=== PATIENT | male | born 1995 | race Caucasian/White ===

== ENCOUNTER 2024-12-07 15:08 | Emergency (ER) | payer OTHER, SELFPAY ==
[2024-12-07 15:13] VITALS: BP 136/91; PULSE 95; RESP 16; TEMP 36.9; O2SAT 98; BMI 35.9
--- NOTE | 2024-12-07 15:20 | ED_ITS ---
HPI - Extremity Injury (Lower) <Yoli Ramsey PA-C - Last Filed: 12/07/24 16:46> General Chief Complaint: Extremity Injury, Lower Stated Complaint: wic, poss sprained ankle, swelling Time Seen by Provider: 12/07/24 15:19 Source: patient Mode of arrival: Wheelchair History of Present Illness HPI Narrative: Mr. Rojas is a pleasant 29 year old male with a PMHx of severe allergy to penicillins who presents to the emergency department for right ankle pain x 4 days. 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 States he may have rolled it. Difficult to bear weight on R leg due to ankle pain. He describes pain as severe pressure, with swelling and redness. He is able to move the ankle with minimal discomfort but bearing weight on the ankle is severely painful. He has not taken any medications prior to arrival. He denies fevers but occasionally has been feelin g chills. Denies any pain or swelling of the calves, knees or other pain. No trauma, recent travel, surgeries, hx of VTE. Smokes daily marijuana. He attempted to be evaluated at walk-in clinic but was sent to the ED for further management. Patient is very concerned about finances and would like to reduce cost as much as possible. No IV drug use, no known hx of MRSA. Related Data Previous Rx's Medication Instructions Recorded sulfamethoxazole 800 1 tab PO Q12H 7 days #14 tabs 12/07/24 mg-trimethoprim 160 mg tablet Allergies Allergy/AdvReac Type Severity Reaction Status Date / Time amoxicillin Allergy Verified 12/07/24 15:18 Penicillins Allergy Verified 12/07/24 15:18 Review of Systems <Yoli Ramsey PA-C - Last Filed: 12/07/24 16:46> Review of Systems ROS Unobtainable: All systems reviewed & are unremarkable except as noted in HPI and below Patient History <Yoli Ramsey PA-C - Last Filed: 12/07/24 16:46> Social History Smoking Status: Current every day smoker Smoking Status: Current every day smoker tobacco type: cigarettes Alcohol type: hard liquor Exam <AVA Garsia Last Filed: 12/07/24 16:46> Narrative Exam Narrative: GENERAL: 29 year old patient appears stated age. Well-developed patient, in no acute distress. HEAD: Atraumatic. Normocephalic. NECK: Trachea midline. Cervical ROM intact. CARDIOVASCULAR: Regular rate RESPIRATORY: ?Nonlabored respirations. ?Speaking in clear, full sentences. EXTREMITIES: Significant edema of the lateral aspect of the right ankle extending onto the dorsal aspect of the right foot with overlying erythema and warmth. No pain with active or passive range of motion of the ankle but there is severe pain with weight bear on the ankle. Tenderness to palpation of both medial and lateral malleolus, no focal tenderness on the foot. Pulses are difficult to palpate due to swelling however foot is warm and well perfused with brisk capillary refill. No tenderness to palpation of bilateral shins, calves, knees. NEURO: AOx3. ?Clear speech. ?Sensation intact to light touch on bilateral plantar and dorsal feet. SKIN: Erythema on lateral aspect of right ankle and foot. No ecchymosis. No streaking erythema. Initial Vital Signs Initial Vital Signs: Vital Signs Temperature 98.5 F 12/07/24 15:13 Pulse Rate 95 H 12/07/24 15:13 Respiratory Rate 16 12/07/24 15:13 Blood Pressure 136/91 H 12/07/24 15:13 Pulse Oximetry 98 12/07/24 15:13 Oxygen Delivery Method Room Air 12/07/24 15:13 <Edna Braswell DO - Last Filed: 12/07/24 17:18> Initial Vital Signs Initial Vital Signs: Vital Signs Temperature 98.5 F 12/07/24 15:13 Pulse Rate 95 H 12/07/24 15:13 Respiratory Rate 16 12/07/24 15:13 Blood Pressure 136/91 H 12/07/24 15:13 Pulse Oximetry 98 12/07/24 15:13 Oxygen Delivery Method Room Air 12/07/24 15:13 Course <Yoli Ramsey PA-C - Last Filed: 12/07/24 16:46> Orders Ordered: ED Orders 12/07/24 15:31 XR ankle RT min 3V Stat XR foot RT min 3V Stat Discontinued Medications Acetaminophen (Acetaminophen 325 Mg Tablet) 975 mg PO NOW ONE Stop: 12/07/24 15:41 Last Admin: 12/07/24 15:56 Dose: 975 mg Documented By: RL Ketorolac Tromethamine (Ketorolac 30 Mg/Ml Vial) 30 mg IM NOW ONE Stop: 12/07/24 15:41 Last Admin: 12/07/24 15:56 Dose: 30 mg Documented By: RL Vital Signs Vital signs: Vital Signs - 8 hr 12/07/24 15:13 12/07/24 16:43 Temperature 98.5 F Pulse Rate 95 H 87 Respiratory Rate 16 18 Blood Pressure 136/91 H 135/86 Pulse Oximetry 98 97 Oxygen Delivery Method Room Air Room Air <Edna Braswell DO - Last Filed: 12/07/24 17:18> Orders Ordered: ED Orders 12/07/24 15:31 XR ankle RT min 3V Stat XR foot RT min 3V Stat Discontinued Medications Acetaminophen (Acetaminophen 325 Mg Tablet) 975 mg PO NOW ONE Stop: 12/07/24 15:41 Last Admin: 12/07/24 15:56 Dose: 975 mg Documented By: ANGELY Ketorolac Tromethamine (Ketorolac 30 Mg/Ml Vial) 30 mg IM NOW ONE Stop: 12/07/24 15:41 Last Admin: 12/07/24 15:56 Dose: 30 mg Documented By: ANGELY Vital Signs Vital signs: Vital Signs - 8 hr 12/07/24 15:13 12/07/24 16:43 Temperature 98.5 F Pulse Rate 95 H 87 Respiratory Rate 16 18 Blood Pressure 136/91 H 135/86 Pulse Oximetry 98 97 Oxygen Delivery Method Room Air Room Air MDM - Extremity Injury (Lower) <Yoli Ramsey PA-C - Last Filed: 12/07/24 16:46> Medical Records Attestation: I reviewed the patient's medical records. MDM Narrative Medical decision making narrative: 29 year old male with a PMHx of severe allergy to penicillins who presents to the emergency department for right ankle pain x 4 days. No specific traumatic injury, states he may have rolled up unsure. Differential diagnosis includes but is not limited to ankle sprain, ankle fracture, cellulitis, etc. On exam patient is in no acute distress, nontoxic appearing, heart rate mildly elevated 95, afebrile. Patient has an edematous and erythematous right ankle with tenderness, no streaking erythema, no bruising. He is having no fevers, no history of IV drug use. Considered VTE however no risk factors including recent surgery, trauma, history of VTE, hormone use, prolonged immobility. Patient is very concerned about cost and once as minimal ED workup as possible. We did discuss that I would like to obtain baseline labs, inflammatory markers given the concern for infection however at this time patient declines and instead would like to proceed with antibiotics only if needed. We will obtain x-ray ankle and foot, treat with Toradol and acetaminophen, pt is elevating leg with ice in ED. Patient's pain improved only slightly. X-ray show no fractures or bony abnormalities, no effusion, there is generalized soft tissue swelling. I suspect his symptoms are due to a combination of right ankle sprain/strain and cellulitis. Due to his anaphylaxis to penicillins, we will treat with Bactrim b.i.d. x7 days which will also cover for MRSA, right Luis M wrap was applied and crutches used for pain. Recommended rice therapy, ibuprofen/acetaminophen, he was provided with good Rx coupon for prescription cost. I did discuss with the patient that if his redness or symptoms do not improve in 48-72 hours he shoulder return to ED, sooner if worse. Do suspect the patient's symptoms likely related to work, L&I form filled out. Patient verbalized understanding of all information in his agreeable to the plan. He is stable for discharge home. Discharge Plan Departure Patient Disposition: Home Clinical Impression: Cellulitis of right ankle Right ankle strain Qualifiers: Encounter type: initial encounter Qualified Code(s): S96.911A - Strain of unspecified muscle and tendon at ankle and foot level, right foot, initial encounter Instructions: DI for Cellulitis -- Adult, DI for Ankle Pain Activity Restrictions/Additional Instructions: Dear Mr. Rojas, Today you were evaluated for right ankle pain and swelling. X-rays of your ankle show no fracture. I am concerned that you have cellulitis which is a skin infection of the right ankle, kind of also strained the right ankle as well. Please take the full 7 day course of antibiotics, take ibuprofen and Tylenol for pain, ice the ankle and elevate the ankle, where the compressive Luis M wrap, and use crutches as needed. If you do not have improvement in your ankle symptoms in the next 2-3 days you need to return to the emergency department immediately, or return sooner if they get worse. Please use RICE therapy for your pain in addition to ibuprofen/acetaminophen. Rest the painful area. Ice the area of pain/swelling for at least 15 minutes, 4x a day. Compress the area of swelling using a brace, wrap, or splint if applied. Elevate the painful or swollen extremity by supporting it above the level of the heart with pillows when sitting or laying. Please take Ibuprofen (Motrin/Advil) or Acetaminophen (Tylenol) for pain. These are available over the counter. You may take Ibuprofen 600 mg every 8 hours with food for pain. You may also take Acetaminophen 650 mg every 4-6 hours for pain. Do not exceed 3000 mg of Tylenol a day as this can cause liver damage. Do not drink alcohol with either of these medications. Please follow up with your primary care doctor within the next 2-3 days for ER follow-up. (If you do not have a PCP you can call [phone]. ?to schedule an appointment with an [facility] Primary Care Provider) IF YOU DEVELOP ANY NEW OR WORSENING SYMPTOMS, RETURN TO THE ER! Please read the attached instructions, they highlight more specific treatments and interventions for you at home. Thank you for letting me participate in your care, Yoli Ramsey PA-C Prescriptions: New sulfamethoxazole-trimethoprim 800-160 mg tablet 1 tab PO Q12H 7 Days Qty: 14 0RF Referrals: Miscellaneous,[facility] [Primary Care Provider] - Stand Alone Forms: Patient Portal/API/Survey ED Sign-out <Edna Braswell DO - Last Filed: 12/07/24 17:18> Cosign ED Attending Brandy Attestation: I was available for consultation.
--- NOTE | 2024-12-07 15:31 | DI.RAD.S_ITS ---
PROCEDURE: XR ANKLE RT MIN 3V INDICATIONS: ankle swelling; unsure of trauma TECHNIQUE: 3 views of the ankle were acquired. COMPARISON: [facility], CR, XR FOOT RT MIN 3V, 12/07/2024, 15:32. FINDINGS: Bones: No fractures or dislocations. Ankle mortise is normally aligned. No suspicious bony lesions. The talar dome demonstrates no azul abnormality. Incidental note is made of an accessory ossicle, an os trigonum. Soft tissues: Generalized soft tissue swelling is seen IMPRESSION: There is generalized soft tissue swelling. No azul acute bony abnormality seen on these plain films. Dictated by: Ralf Nicholas M.D. on 12/07/2024 at 15:11 Approved by: Ralf Nicholas M.D. on 12/07/2024 at 15:11
--- NOTE | 2024-12-07 15:31 | DI.RAD.S_ITS ---
PROCEDURE: XR FOOT RT MIN 3V INDICATIONS: ankle foot pain swelling TECHNIQUE: 3 views of the foot were acquired. COMPARISON: [facility], CR, XR ANKLE RT MIN 3V, 12/07/2024, 15:32. FINDINGS: Bones: No fractures or dislocations. No suspicious bony lesions. Incidental note is made of an accessory ossicle, an os peroneum. Soft tissues: Generalized soft tissue swelling is seen. IMPRESSION: Generalized soft tissue swelling, without an acute bony abnormality seen on these plain films. Dictated by: Ralf Nicholas M.D. on 12/07/2024 at 15:10 Approved by: Ralf Nicholas M.D. on 12/07/2024 at 15:11
[2024-12-07] MEDS: KETOROLAC 30 MG/ML VIAL IM (15:56)
[2024-12-07] MEDS: ACETAMINOPHEN 325 MG TABLET 975 MG PO (15:56)
[2024-12-07 16:43] VITALS: BP 135/86; PULSE 87; RESP 18; O2SAT 97
== END 2024-12-07 16:43 | disposition home or self-care (01) ==
PROVIDERS: Emergency Provider Physician Assistant
DX: S96.911A Strain of unspecified muscle and tendon at ankle and foot level, right foot, initial encounter (principal); L03.115 Cellulitis of right lower limb; X58.XXXA Exposure to other specified factors, initial encounter
CPT/HCPCS: 73610; 73630; 96372; 99283; 99284; J1885